=== PATIENT | female | born 1995 ===

== ENCOUNTER → 2021-01-28 | Outpatient (REF) | payer MEDICAID ==
[2021-01-28 18:39] LABS: BACTERIA, URINE AUTO NEGATIVE (NEGATIVE); RBC, URINE AUTO 1 /HPF (0-3); SQUAMOUS EPITHELIAL CELL UR AU 0 /HPF (0-6); WBC, URINE AUTO 1 /HPF (0-3)
== END ==
LOC: M SMT 17:39
PROVIDERS: ATTEND Specialist
DX: R31.9 Hematuria, unspecified (principal)